=== PATIENT | female | born 1990 | race Hispanic/Latino ===

== ENCOUNTER 2019-09-27 23:31 | Emergency (ER) | payer SELFPAY ==
[~2019-09-27] VITALS: Ht 165.1 cm; Wt 83.5 kg
[~2019-09-27 23:31] MED LIST: TRAZODONE HCL100 MG
--- OUTSIDE RECORDS SUMMARY | 2019-09-27 23:34 | XMS REPORT ---
[facility] Address Unknown Phone Unavailable Care Team Providers Care [employer] And [employer] Specialist Name Role Phone Unavailable Unavailable Payers Payer Name Policy Type Policy Number Effective Date Expiration Date Problems This patient has no known problems. Allergies, Adverse Reactions, Alerts Allergy Name Allergy Type Status Severity Reaction(s) Onset Date Inactive Date Treating Clinician Comments No Known Allergies DA Active U 2016-06-29 00:00:00 Medications This patient has no known medications.
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
== END 2019-09-28 02:11 | disposition home or self-care (01) ==
LOC: ER 23:31
DX: S06.0X0A Concussion without loss of consciousness, initial encounter (principal); S02.2XXA Fracture of nasal bones, initial encounter for closed fracture; Y04.0XXA Assault by unarmed brawl or fight, initial encounter; Y92.008 Other place in unspecified non-institutional (private) residence as the place of occurrence of the external cause; F17.210 Nicotine dependence, cigarettes, uncomplicated
CPT/HCPCS: 70486; 99283

== ENCOUNTER 2019-12-30 16:40 | Emergency (ER) | payer SELFPAY ==
[~2019-12-30] VITALS: Ht 165.1 cm; Wt 83.5 kg
[2019-12-30] MEDS ORDERED: IBUPROFEN 600 MG TAB PO STA (17:21)
--- NOTE | 2019-12-30 17:50 | NUR ---
Patient currently in CT scan.
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
[2019-12-30] MEDS ORDERED: MOTRIN200 MG PO (20:11)
[2019-12-30] MEDS ORDERED: BACITRACIN ZINC 0.9GM TP ONE ×2 (20:15→20:20)
== END 2019-12-30 20:55 | disposition home or self-care (01) ==
LOC: ER 16:40
DX: S00.83XA Contusion of other part of head, initial encounter (principal); S60.221A Contusion of right hand, initial encounter; Y04.8XXA Assault by other bodily force, initial encounter; Y92.008 Other place in unspecified non-institutional (private) residence as the place of occurrence of the external cause
CPT/HCPCS: 70450; 70486; 71046; 71101